=== PATIENT | female | born 1980 | race Two or more races ===

== ENCOUNTER 2021-05-13 19:43 | Emergency (ER) | payer BC, OTHER ==
[~2021-05-13] VITALS: Ht 162.6 cm; Wt 83.5 kg
[2021-05-14 01:18] VITALS: BP 142/88
== END 2021-05-14 01:29 | disposition home or self-care (01) ==
LOC: ER 19:46
DX: S10.15XA Superficial foreign body of throat, initial encounter (principal); M54.2 Cervicalgia; X58.XXXA Exposure to other specified factors, initial encounter; Y93.89 Activity, other specified; Y92.89 Other specified places as the place of occurrence of the external cause; Y99.8 Other external cause status
CPT/HCPCS: 70490